=== PATIENT | male | born 2000 | race Caucasian/White ===

== ENCOUNTER 2020-09-11 10:12 | Emergency (ER) | payer OTHER ==
[~2020-09-11] VITALS: Ht 182.9 cm; Wt 90.7 kg
[2020-09-11] MEDS ORDERED: TRAM50 PO (11:18)
== END 2020-09-11 11:34 | disposition home or self-care (01) ==
LOC: ER 10:12
DX: S80.12XA Contusion of left lower leg, initial encounter (principal); W10.2XXA Fall (on)(from) incline, initial encounter
CPT/HCPCS: 73590; 99283-25; A9270